=== PATIENT | female | born 2000 | race Caucasian/White ===

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

== ENCOUNTER 2020-10-10 08:36 | Outpatient (CLI) | payer OTHER | END 2020-10-10 08:53 | disposition home or self-care (01) | LOC: RAD 08:36 → MAMO-SONO 09:45 | DX: J20.8 Acute bronchitis due to other specified organisms (principal); E04.1 Nontoxic single thyroid nodule; R22.32 Localized swelling, mass and lump, left upper limb ==